=== PATIENT | female | born 1955 | race Caucasian/White ===

== ENCOUNTER 2023-11-14 08:30 | Outpatient (CLI) | payer MEDICARE, SELFPAY ==
--- NOTE | ~2023-11-14 | XR_ITS ---
EXAMINATION: XR lumbar spine min 4V DATE: 11/14/2023 08:57 INDICATION: Spondylosis without myelopathy or radiculopathy. TECHNIQUE: 4 views of lumbar spine including standing and flexion and extension views were obtained. COMPARISON: None. FINDINGS: There is 3 mm anterolisthesis of L4 and L5. The spine is hypomobile with flexion and extens ion. Vertebral body heights are normal. There is mildly decreased disc height at L4-L5. There is mult ilevel facet joint osteoarthritis, severe in lower lumbar spine. IMPRESSION: 1. Mild lumbar spondylosis. Reviewed, dictated and finalized at location A. IMPRESSION: 1. Mild lumbar spondylosis.
== END 2023-11-14 08:31 | disposition home or self-care (01) ==
PROVIDERS: PCP Internal Medicine; Visit Provider Neurological Surgery
DX: M47.816 Spondylosis without myelopathy or radiculopathy, lumbar region (principal)
CPT/HCPCS: 72110